=== PATIENT | male | born 1945 | race Caucasian/White ===

== ENCOUNTER 2016-10-04 12:12 | Emergency (ER) ==
[2016-10-04 12:18] VITALS: BP 148/72; TEMP 98.2; BMI 37.6
[2016-10-04] MEDS ORDERED: TENIVAC IM ONE (13:00)
[2016-10-04] MEDS ORDERED: LIDOCAINE 1 % AMP 5 ML (SUTURES) SUBCUT STA (13:00)
--- NOTE | 2016-10-04 13:28 | ED.PDOC ---
General ED Provider: Dr. TUSHAR PETIT Chief Complaint: Finger Laceration Stated Complaint: right little finger laceration Time Seen by Physician: 12:12 Mode of Arrival: Walk-In Information Source: Patient, Family Exam Limitations: No limitations Primary Care Provider: LETICIA LIVE Nursing and Triage Documentation Reviewed and Agree: Yes Skin Complaint Exam - Laceration/Upper Ext. Complaint/Exam Location of Injury: Right (little finger lac) Mechanism of Injury: Laceration Onset/Duration: 1 hr Symptoms Are: Still present Initial Severity: Mild Current Severity: Mild Aggravating: None Alleviating: None Associated Signs and Symptoms: Denies: Fever, Chills, Erythema, Numbness, Tingling Differential Diagnoses: Laceration Review of Systems - Review Of Systems Constitutional: Reports: No symptoms Eyes: Reports: No symptoms Ears, Nose, Mouth, Throat: Reports: No symptoms Respiratory: Reports: No symptoms Cardiac: Reports: No symptoms GI: Reports: No symptoms : Reports: No symptoms Musculoskeletal: Reports: No symptoms Skin: Reports: No symptoms Neurological: Reports: No symptoms Endocrine: Reports: No symptoms Hematologic/Lymphatic: Reports: No symptoms All Other Systems: Reviewed and Negative Past Medical History - Past Medical History Previously Healthy: Yes Endocrine: Reports: None Cardiovascular: Reports: None Respiratory: Reports: None Hematological: Reports: None Gastrointestinal: Reports: None Genitourinary: Reports: None Neuro/Psych: Reports: None Musculoskeletal: Reports: None Cancer: Reports: None - Surgical History General Surgical History: Reports: None - Family History Family History: Reports: None - Social History Smoking Status: Never smoker Hx Substance Use: No Alcohol Screening: None - Immunizations Tetanus Shot up to Date: Yes Physical Exam - Physical Exam Appearance: Well-appearing, No pain distress, Well-nourished Eyes: PRITI, EOMI, Conjunctiva clear ENT: Ears normal, Nose normal, Oropharynx normal Respiratory: Airway patent, Breath sounds clear, Breath sounds equal, Respirations nonlabored Cardiovascular: RRR, Pulses normal, No rub, No murmur GI/: Soft, Nontender, No masses, Bowel sounds normal, No Organomegaly Musculoskeletal: Normal strength, ROM intact, No edema, No calf tenderness Skin: Warm, Dry Neurological: Sensation intact, Motor intact, Reflexes intact, Cranial nerves intact, Alert, Oriented Psychiatric: Affect appropriate, Mood appropriate Procedures - Laceration/Wound Repair No standard instances Wound Description: Linear Wound Length (cm): 3mm Wound Width: 2mm Wound Depth: 1mm Wound Explored: Clean Anesthesia: Lidocaine Undermining: Minimal Suture Size and Type: 3 Number of Sutures: 2 Layer Closure?: No Critical Care Note - Critical Care Note Total Time (mins): 0 Course - Course Orders, Labs, Meds: Orders Category Date Time Status Lidocaine HCl/Pf [Lidocaine 1 % Amp 5 ml (Sutures)] MEDS 10/04/16 13:00 Discontinued 5 ml SUBCUT ONCE STA Tetanus and Diphtheria Tox/Pf [Tenivac] MEDS 10/04/16 13:00 Discontinued 0.5 ml IM .ONCE ONE Medications Discontinued Medications Generic Name Dose Route Start Last Admin Trade Name Freq PRN Reason Stop Dose Admin Lidocaine HCl 5 ml 10/04/16 13:00 10/04/16 13:20 Lidocaine 1 % Amp 5 Ml (Sutures) SUBCUT 10/04/16 13:01 5 ml ONCE STA Administration Tetanus/Diphtheria Toxoids Adsorbed 0.5 ml 10/04/16 13:00 10/04/16 13:21 Tenivac IM 10/04/16 13:01 0.5 ml .ONCE ONE Administration Vital Signs: Temp Pulse Resp BP Pulse Ox 10/04/16 12:12 98.2 F 72 20 148/72 H 98 Departure - Departure Time of Disposition: 13:28 Disposition: HOME SELF-CARE Discharge Problem: Laceration of finger Instructions: Finger Laceration (ED), Care For Your Stitches (ED) Condition: Good Pt referred to PMD for follow-up: No Additional Instructions: Please call your Family Physician as soon as possible to schedule a follow-up appointment. Allergies/Adverse Reactions: Allergies No Known Allergies Allergy (Unverified 10/04/16 12:18) Home Medications: Ambulatory Orders Amlodipine Besylate [Norvasc] 5 mg PO DAILY 09/10/14 Furosemide [Lasix] 40 mg PO DAILY 09/10/14 Omeprazole 20 mg PO DAILY 09/10/14 Potassium 20 mg PO DAILY 10/04/16
== END 2016-10-04 13:44 | disposition home or self-care (01) ==
LOC: ED 12:12
DX: S61.216A Laceration without foreign body of right little finger without damage to nail, initial encounter (principal); W45.8XXA Other foreign body or object entering through skin, initial encounter
CPT/HCPCS: 90471; 99283

== ENCOUNTER 2018-11-21 14:55 | Outpatient (CLI) | payer OTHER | END 2018-11-21 14:56 | disposition home or self-care (01) | LOC: RHC-LAB 14:55 | PROVIDERS: ATTEND Nurse Practitioner Family | DX: R19.7 Diarrhea, unspecified (principal) | CPT/HCPCS: 36415; 80053; 83690; 85025; 87493 ==

== ENCOUNTER 2019-03-31 23:19 | Emergency (ER) | payer OTHER ==
[2019-03-31 23:34] VITALS: BP 160/70; TEMP 98; BMI 35.9
[2019-03-31] MEDS ORDERED: ROCEPHIN 1 GM PREMIX 1 GM in PREMIX 50 ML D5W 1 BAG IV STA (23:52)
[2019-03-31] MEDS ORDERED: SOLU-MEDROL 125 MG IVP STA (23:52)
--- NOTE | 2019-03-31 23:55 | ED.PDOC ---
General ED Provider: Dr. IVÁN FAULKNER Chief Complaint: Earache Stated Complaint: Right ear ache for few days used previous Hydrocortisone salve but the pain got worse now spread to the right face sparing the right eye Time Seen by Physician: 23:50 Mode of Arrival: Walk-In Information Source: Patient Primary Care Provider: LETICIA LIVE Nursing and Triage Documentation Reviewed and Agree: Yes Does patient meet sepsis criteria?: No System Inflammatory Response Syndrome: Not Applicable Sepsis Protocol: For patient's 13 years and over: Temp is 96.8 and below OR 101 and greater Pulse >90 BPM Resp >20/minute Acutely Altered Mental Status Are patient's symptoms suggestive of a new infection, such as: -Pneumonia -Skin, Soft Tissue -Endocarditis -UTI -Bone, Joint Infection -Implantable Device -Acute Abdominal Infection -Wound Infection -Meningitis -Blood Stream Catheter Infection -Unknown EENT Complaint Exam - Ear Complaint/Exam Onset/Duration: 2 days Symptoms Are: Still present Character: Reports: Aching pain Aggravating: Reports: Tugging on ear Associated Signs and Symptoms: Reports: Ear swelling, Pain to external ear, Pain to external face (Right [place] ). Denies: Ear trauma Review of Systems - Review Of Systems Constitutional: Reports: No symptoms Eyes: Reports: No symptoms Ears, Nose, Mouth, Throat: Reports: Ear pain (outer ear swelling and pain). Denies: Ear discharge Respiratory: Reports: No symptoms Cardiac: Reports: No symptoms GI: Reports: No symptoms : Reports: No symptoms Musculoskeletal: Reports: No symptoms Skin: Reports: Rash (right ear and roman catholic) Neurological: Reports: No symptoms Endocrine: Reports: No symptoms Hematologic/Lymphatic: Reports: No symptoms All Other Systems: Reviewed and Negative Past Medical History - Past Medical History Previously Healthy: Yes Endocrine: Reports: None Cardiovascular: Reports: Hypertension Respiratory: Reports: None Hematological: Reports: None Gastrointestinal: Reports: GERD Genitourinary: Reports: None Neuro/Psych: Reports: None Musculoskeletal: Reports: Arthritis Cancer: Reports: None - Surgical History General Surgical History: Reports: Cholecystectomy, Hernia Repair, Other (AAA surgery) - Family History Family History: Reports: None - Social History Smoking Status: Former smoker Hx Substance Use: No Alcohol Screening: None - Immunizations Tetanus Shot up to Date: Yes Physical Exam - Physical Exam Appearance: Ill-appearing Ill-appearing: Mild Pain Distress: Severe Eyes: PRITI, EOMI, Conjunctiva clear ENT: Erythema Respiratory: Airway patent, Breath sounds clear, Breath sounds equal, Respirations nonlabored Cardiovascular: RRR, Pulses normal, No rub, No murmur Musculoskeletal: Normal strength, ROM intact, No edema, No calf tenderness Skin: Warm, Dry, Normal color Neurological: Alert Psychiatric: Anxious Interpretation - Radiology Interpretation Radiology Interpretation By: Radiologist Radiology Results: Positive Exam Interpreted: CT Scan (swelling of the external auditory cannal suggestive of cellulitis ) Critical Care Note - Critical Care Note Total Time (mins): 30 Course - Course Hematology/Chemistry: 04/01/19 00:50 04/01/19 00:50 Vital Signs: Temp Pulse Resp BP Pulse Ox 03/31/19 23:19 98 F 64 18 160/70 H 94 L Departure - Departure Time of Disposition: 00:28 Disposition: HOME SELF-CARE Discharge Problem: Facial cellulitis Instructions: Cellulitis (ED) Condition: Good Pt referred to PMD for follow-up: Yes IPMP verified?: No Additional Instructions: Take Antibiotics as prescribed Follow up with PCP in the morning. Prescriptions: Cephalexin [Keflex] 500 mg PO Q8HR #30 capsule Prednisone 40 mg PO DAILYWM #10 tablet Allergies/Adverse Reactions: Allergies No Known Allergies Allergy (Verified 03/31/19 23:34) Home Medications: Ambulatory Orders Furosemide [Lasix] 40 mg PO DAILY 09/10/14 Omeprazole 20 mg PO DAILY 09/10/14 Potassium 20 mg PO DAILY 10/04/16 Cephalexin [Keflex] 500 mg PO Q8HR #30 capsule 04/01/19 Prednisone 40 mg PO DAILYWM #10 tablet 04/01/19 Disposition Discussed With: Patient, Family
[2019-04-01] MEDS ORDERED: ROCEPHIN 1 GM PREMIX 50 ML IV ONE (00:02)
--- NOTE | 2019-04-01 01:21 | CT ---
EXAM: CT scan brain without contrast HISTORY: Right ear pain, swelling COMPARISON: None. FINDINGS: Contiguous axial images obtained from skull base to the convexities without contrast utili zing 5-mm collimation . Sagittal and coronal reconstructions were imaged and reviewed.. The ventric les and CSF spaces are prominent compatible with age appropriate atrophy. Periventricular hypodensit y is noted compatible with chronic microvascular disease. The visualized paranasal sinuses and masto id air cells are clear. Atherosclerotic changes are seen involving the bilateral vertebral and madie nous internal carotid arteries. Swelling is seen adjacent to the right external auditory canal sugge stive of cellulitis. IMPRESSION: No acute intracranial findings. Swelling is seen adjacent to the right external auditory canal suggesting cellulitis.
--- NOTE | 2019-04-01 01:21 | CT ---
Exam: CT maxillofacial without contrast History: Right ear swelling with cellulitis Technique: [address] maxillofacial without contrast FINDINGS: There is thickening of the right ear with surrounding inflammation of the subcutaneous fat . The parotid and submandibular glands appear normal. External auditory canal and middle ear are cl ear. Mastoid air cells and middle ears are clear. Paranasal sinuses are clear. Normal zygoma and n zahra bones. The maxilla and mandible are normal. Impression: Swelling of the right ear and subcutaneous inflammatory stranding. No organizing inflam matory mass or collection.
== END 2019-04-01 02:15 | disposition home or self-care (01) ==
LOC: ED 23:19
DX: L03.211 Cellulitis of face (principal)
CPT/HCPCS: 36415; 80053; 85025; 96365; 96375; 99283